=== PATIENT | male | born 1950 | race Two or more races ===

== ENCOUNTER 2021-08-02 13:15 | Outpatient (CLI) | payer OTHER | END 2021-08-02 13:17 | disposition home or self-care (01) | LOC: NUCLEAR 13:15 | PROVIDERS: ATTEND Internal Medicine Endocrinology, Diabetes & Metabolism | DX: M81.0 Age-related osteoporosis without current pathological fracture (principal) ==

== ENCOUNTER → 2021-08-02 | Outpatient (CLI) | payer OTHER | END | disposition home or self-care (01) | LOC: RAD 14:05 | PROVIDERS: ATTEND Specialist | DX: R05.3 Chronic cough (principal) ==